=== PATIENT | male | born 1945 | race Caucasian/White ===

== ENCOUNTER → 2018-11-22 12:16 | Outpatient (CLI) | payer MEDICARE, OTHER, SELFPAY ==
--- NOTE | 2018-11-22 12:20 | DI.RAD.S_ITS ---
PROCEDURE: XR CHEST 2V INDICATIONS: cough with wheezing Right lung TECHNIQUE: 2 views of the chest were acquired. COMPARISON: None. FINDINGS: Surgical changes and devices: None. Lungs and pleura: Lungs are clear. No pleural effusions or pneumothorax. Mediastinum: Mediastinal contours are normal. Heart size is normal. Bones and chest wall: No suspicious bony abnormalities. Soft tissues appear unremarkable. IMPRESSION: No acute cardiopulmonary findings. Dictated by: Subha Dalal M.D. on 11/22/2018 at 12:36 Approved by: Subha Dalal M.D. on 11/22/2018 at 12:36
== END ==
PROVIDERS: Visit Provider Physician Assistant
DX: R05 Cough (principal); R06.2 Wheezing
CPT/HCPCS: 71046

== ENCOUNTER → 2019-05-12 15:51 | Outpatient (CLI) | payer MEDICARE, OTHER, SELFPAY | PROVIDERS: Visit Provider Physician Assistant | DX: R30.0 Dysuria (principal) | CPT/HCPCS: 87086 ==

== ENCOUNTER → 2019-09-02 15:00 | Outpatient (CLI) | payer MEDICARE, OTHER, SELFPAY ==
[2019-09-02 16:52] LABS: Add Manual Diff / Slide Review NO; Basophils Absolute Auto 100 /uL (0-100); Basophils Percent Auto 0.9 % (0-2); Eosinophils Absolute Auto 200 /uL (0-450); Eosinophils Percent Auto 3.6 % (2-4); Hematocrit 44.8 % (41-53); Hemoglobin 15.2 g/dL (13.5-17.5); Lymphocytes Absolute Auto 1600 /uL (1100-4500); Lymphocytes Percent Auto 22.9 % (25-40); Mean Corpuscular HGB Conc 33.8 % (30-36); Mean Corpuscular Hemoglobin 30.9 PG (26-34); Mean Corpuscular Volume 91.4 fL (80-100); Monocytes Absolute Auto 600 /uL (0-900); Monocytes Percent Auto 9.2 % (3-14); Neutrophils Absolute Auto 4300 /uL (1500-7000); Neutrophils Percent Auto 63.4 % (50-75); Platelet Count 257 X10^3/uL (150-400); Red Cell Distribution Width 13.2 % (11.6-14.8); White Blood Cell Count 6.8 X10^3/uL (4.5-11.0)
[2019-09-02 17:30] LABS: Alanine Aminotransferase 19 IU/L (<50); Albumin 4.2 g/dL (3.5-5.0); Albumin Globulin Ratio 1.4 (1.0-2.8); Alkaline Phosphatase 73 U/L (38-126); Aspartate Aminotransferase 30 IU/L (17-59); Bilirubin Total 0.3 mg/dL (0.2-1.3); Blood Urea Nitrogen 22 mg/dL (9-20); Calcium 9.5 mg/dL (8.4-10.2); Carbon Dioxide 28 mmol/L (22-32); Chloride 102 mmol/L (98-107); Estimated Glomerular Filt Rate > 60.0 mL/min (>60); Glucose 92 mg/dL (80-110); HEMOLYSIS < 15 (0-50); Phosphorous 3.1 mg/dL (2.3-3.7); Potassium 4.5 mmol/L (3.4-5.1); Sodium 139 mmol/L (137-145); Total Protein 7.2 g/dL (6.3-8.2)
[2019-09-02 17:32] LABS: Erythrocyte Sedimentation Rate 5 MM/HR (0-15)
== END ==
PROVIDERS: PCP Student in an Organized Health Care Education/Training Program; Visit Provider Student in an Organized Health Care Education/Training Program
DX: M89.8X6 Other specified disorders of bone, lower leg (principal); N39.0 Urinary tract infection, site not specified; N41.1 Chronic prostatitis; N14.1 Nephropathy induced by other drugs, medicaments and biological substances; T50.8X5A Adverse effect of diagnostic agents, initial encounter
CPT/HCPCS: 36415; 80053; 84100; 85025; 85651

== ENCOUNTER 2019-09-08 03:47 | Emergency (ER) | payer MEDICARE, OTHER, SELFPAY ==
[2019-09-08 03:50] VITALS: PULSE 66; RESP 18; TEMP 36.4; O2SAT 98
--- NOTE | 2019-09-08 03:51 | DI.CT.S_ITS ---
PROCEDURE: CT ABDOMEN PELVIS W CON INDICATIONS: severe pelvic pain, seen by PCP for same, outpatient imaging TECHNIQUE: After the administration of intravenous contrast, 5 mm thick sections acquired from the diaphragm to the symphysis. 5 mm coronal and sagittal reformats were acquired. For radiation dose reduction, the following was used: automated exposure control, adjustment of mA and/or kV according to patient size. COMPARISON: None. FINDINGS: Image quality: Excellent. ABDOMEN: Lung bases: Scattered subsegmental atelectasis and/or scarring. No focal consolidation. Numerous variable sized subcentimeter bilateral pulmonary nodules are present in the visualized lung bases, which are highly concerning for metastatic disease, although incompletely evaluated recommend dedicated chest CT. Solid organs: Numerous sub-5 mm hepatic hypodensities are present for example image 9/2 in the dome, as well as depicted on the montage image. Gallbladder grossly unremarkable. Biliary system is non dilated. Cystic lesion within the head of the pancreas measuring up to 1.1 cm image 28/2 which is technically indeterminate in the absence of prior studies. Spleen is normal in size and enhancement. On image 22/2, there is a focal 2.0 cm hazy attenuation in the region of the left adrenal gland raising possibility of incidental adrenal myelolipoma although technically indeterminate without prior studies and could be monitored on future CT scans for stability. Kidneys demonstrate normal size and enhancement, without hydronephrosis. Presumed small bilateral renal cysts although some of these are technically too small to characterize accurately Peritoneum and bowel: Bowel loops demonstrate normal wall thickness and caliber. No free fluid or air. Colonic diverticulosis incidentally noted. The appendix is normal size. Rectum grossly unremarkable. Nodes and vessels: No retroperitoneal or mesenteric adenopathy by size criteria. Aorta and inferior vena cava are normal in size. Miscellaneous: Trace umbilical fat-containing hernia, subcentimeter in size. PELVIS: Genitourinary: Bladder wall thickness is normal. Prostate appears enlarged and heterogeneous, and abnormal attenuation may involve the left seminal vesicle although technically indeterminate.. Miscellaneous: No inguinal hernias or adenopathy. Bones: No suspicious bony lesions. No vertebral body compression fractures. IMPRESSION: Numerous bilateral pulmonary nodules in the visualized lung bases, suspicious for metastatic disease as described above Nonspecific subcentimeter scattered hypodense lesions in the liver, technically indeterminate although recommend continued attention on subsequent studies Cystic lesion in the head of the pancreas. Technically, cystic neoplasm such as IPMN cannot be excluded, as discussed in the preliminary interpretation. Further evaluation with contrast enhanced pancreatic protocol MRI could be performed. Enlarged heterogeneous prostate, with possible soft tissue extension into the left seminal vesicle however this is technically indeterminate, and further assessment could be performed with dedicated contrast-enhanced prostate MRI. 2 cm hazy fat attenuation focus involving the left adrenal gland region, potentially incidental adrenal myelolipoma although technically nonspecific and recommend attention to this area on subsequent studies. No definite specific evidence of osseous metastases although bone scan could be considered as clinically necessary. Dictated by: Audi Mendez M.D. on 09/08/2019 at 8:19 Approved by: Audi Mendez M.D. on 09/08/2019 at 8:32
[2019-09-08 04:06] VITALS: BP 130/108
[2019-09-08] MEDS: SODIUM CHLORIDE 0.9% 1,000 ML 1000 ML IV (04:22)
[2019-09-08] MEDS: ONDANSETRON 4 MG/2 ML INJ IV (04:22)
[2019-09-08] MEDS: HYDROMORPHONE 0.5 MG INJ IV (04:22)
[2019-09-08 04:23] LABS: Add Manual Diff / Slide Review NO; Basophils Absolute Auto 100 /uL (0-100); Basophils Percent Auto 1.2 % (0-2); Eosinophils Absolute Auto 400 /uL (0-450); Eosinophils Percent Auto 5.1 % (2-4); Hematocrit 44.6 % (41-53); Hemoglobin 15.2 g/dL (13.5-17.5); Lymphocytes Absolute Auto 1300 /uL (1100-4500); Lymphocytes Percent Auto 17.7 % (25-40); Mean Corpuscular HGB Conc 34.1 % (30-36); Mean Corpuscular Hemoglobin 30.8 PG (26-34); Mean Corpuscular Volume 90.3 fL (80-100); Monocytes Absolute Auto 600 /uL (0-900); Monocytes Percent Auto 8.2 % (3-14); Neutrophils Absolute Auto 5000 /uL (1500-7000); Neutrophils Percent Auto 67.8 % (50-75); Platelet Count 231 X10^3/uL (150-400); Red Blood Cell Count 4.94 X10^6/uL (4.5-5.9); Red Cell Distribution Width 13.2 % (11.6-14.8); White Blood Cell Count 7.4 X10^3/uL (4.5-11.0)
[2019-09-08 04:29] LABS: Blood Urea Nitrogen 18 mg/dL (9-20); Calcium 9.3 mg/dL (8.4-10.2); Carbon Dioxide 26 mmol/L (22-32); Chloride 103 mmol/L (98-107); Estimated Glomerular Filt Rate > 60.0 mL/min (>60); Glucose 108 mg/dL (80-110); HEMOLYSIS 17 (0-50); Sodium 137 mmol/L (137-145)
[2019-09-08 04:40] LABS: Alkaline Phosphatase 67 U/L (38-126)
--- NOTE | 2019-09-08 04:49 | ED_ITS ---
HPI - Male Genitourinary General Chief complaint: Urogenital-Male Stated complaint: lots of pain in pelvic area Time Seen by Provider: 09/08/19 03:50 Source: patient and family Mode of arrival: Ambulatory Limitations: no limitations History of Present Illness HPI Narrative: 74-year-old male nonsmoker with history of chronic prostatitis and urologic care and [place] presents at their request for evaluation of wo rsening suprapubic pain and left lower quadrant pain. The patient denies any fever chills and has been nauseated but no vomiting. He has had no diarrhea or constipation and denies trouble with urination. He has had multiple extended episodes of antibiotic coverage without any significant change in his prostatitis symptoms. He is complaining of increasing significant pain which seems to be worse with motion improved with rest. He denies any provocation with bowel movement. Denies any radiation of the pain. Additionally he has some pain in his right hip which is in the absence of any injury and seems to be worse with motion. He has seen his primary care provider recently and had multiple labs and ordered an outpatient CT of the abdomen pelvis with IV contrast. He denies any testicular pain or swelling. Denies any radiation of the pain into his lower extremities. He denies any numbness, tingling or weakness. He denies any midline back pain MD Complaint: other Onset (ago): month(s) Duration: constant Location: abdomen Severity: severe Quality: aching Relieving factors: none Exacerbating factors: movement Associated symptoms: Reports nausea/vomiting Related Data Home Medications Medication Instructions Recorded Confirmed cholecalciferol (vitamin D3) 1,000 1,000 unit PO DAILY 05/12/19 09/02/19 unit capsule Previous Rx's Medication Instructions Recorded ketorolac 10 mg PO Q6H PRN #20 tab 09/08/19 Allergies Allergy/AdvReac Type Severity Reaction Status Date / Time ciprofloxacin [From Cipro] AdvReac Severe rash, Verified 09/02/19 14:42 tendonopathy pollens Allergy Mild Uncoded 09/02/19 14:42 Review of Systems Constitutional Constitutional: Denies chills, Denies fatigue, Denies fever(s), Denies frequent falls, Denies lethargy and Denies weakness Eyes Eyes: Denies change in vision, Denies eye discharge, Denies irritation and Denies loss of vision ENT Ears, Nose, Mouth, and Throat: Denies change in voice, Denies dizziness, Denies neck pain, Denies sore throat and Denies throat swelling Cardiovascular Cardiovascular: Denies chest pain, Denies irregular heart rhythm, Denies lightheadedness, Denies palpitations, Denies dyspnea, Denies dyspnea on exertion and Denies orthopnea Respiratory Respiratory: Denies cough, Denies dyspnea, Denies dyspnea on exertion and Denies wheezing Gastrointestinal Gastrointestinal: Reports abdominal pain (Suprapubic), Denies change in bowel santiago bits, Denies diarrhea, Denies nausea and Denies vomiting Genitourinary Genitourinary: Denies hematuria, Denies flank pain, Denies urinary incontinence and Denies urinary urgency Musculoskeletal Musculoskeletal: Denies back pain, Reports limited range of motion, Denies muscle weakness, Denies neck pain, Denies numbness and Denies tingling Integumentary/Breasts Skin/Breast: Denies pruritus, Denies erythema, Denies rash and Denies wounds Neurologic Neurologic: Denies behavioral changes, Denies confusion, Denies dizziness, Denies frequent falls, Denies loss of vision, Denies numbness, Denies tingling and Denies weakness Psychiatric Psychiatric: Denies anxiety, Denies behavioral changes, Denies confusion, Denies depression, Denies homicidal ideation and Denies suicidal ideation Endocrine Endocrine: Denies fatigue, Denies flushing and Denies palpitations Hematologic/Lymphatic Hematologic/Lymphatic: Denies easy bruising Allergic/Immunologic Allergic/Immunologic: Denies urticaria, Denies throat swelling and Denies wheezing Patient History Medical History Actinic keratosis (Chronic) Allergies (Chronic) Ankle pain (Chronic ~2019) Chicken pox (Resolved) Colon polyps (Inactive) Frequent UTI (Chronic ~2019) History of skin cancer (Inactive) Measles (Resolved) Mumps (Resolved) Plantar warts (Inactive) Surgical History Anesthesia (Resolved) Basal cell carcinoma of skin of face (Resolved) History of colonoscopy (Resolved) Squamous cell carcinoma of back (Resolved) Family History Father Cancer Hyperlipidemia Mother Diabetes mellitus Hyperlipidemia Hypertension Sister History of heart disease Grandfather History of heart disease Grandmother No problems noted. Grandfather Alzheimer's disease Grandmother Stroke Social History Smoking Status: Never smoker Smoking Status: Never smoker Substance Use Type: does not use Exam Narrative Exam Narrative: GENERAL: [74] year old patient appears stated age. Well-nouris hed, well-developed patient, in obvious pain HEAD: Atraumatic. Normocephalic. EYES: Pupils equal round and reactive. Extraocular motions intact. No scleral icterus. No injection or drainage. ENT: Nose without bleeding, purulent drainage. Throat without erythema, tonsillar hypertrophy or exudate. Airway patent. NECK: Trachea midline. Non tender CARDIOVASCULAR: Regular rate and rhythm without murmurs, gallops, or rubs. RESPIRATORY: Clear to auscultation. Breath sounds equal bilaterally. No wheezes, rales, or rhonchi. GASTROINTESTINAL: Abdomen soft, non-tender, nondistended. RECTAL: prostate exam elicitis some pain, no significant nodularity or increased size/bogginess EXTREMITIES: No edema or joint tenderness. BACK: Nontender without deformity or crepitance. No flank tenderness. NEURO: AOx3. SKIN: No rash or erythema of visible areas Initial Vital Signs Initial Vital Signs: Vital Signs Temperature 97.6 F 09/08/19 03:50 Pulse Rate 66 09/08/19 03:50 Respiratory Rate 18 09/08/19 03:50 Pulse Oximetry 98 09/08/19 03:50 Course Orders Ordered: ED Orders 09/08/19 03:51 CT abdomen pelvis w con Stat 09/08/19 04:00 Alkaline Phosphatase Stat Basic Metabolic Panel Stat Complete Blood Count AUTO DIFF Stat Prostate Specific Antigen Stat 09/08/19 05:21 Urine Microscopic Stat Discontinued Medications Hydromorphone HCl (Dilaudid) 0.5 mg IV NOW ONE Stop: 09/08/19 04:05 Last Admin: 09/08/19 04:22 Dose: 0.5 mg Documented by: MMCFARL Sodium Chloride (Normal Saline 0.9%) 1,000 mls @ 1,000 mls/hr IV BOLUS ONE Stop: 09/08/19 04:51 Last Infusion: 09/08/19 05:33 Dose: 1,000 mls/hr Documented by: Admin: 09/08/19 04:22 Dose: 1,000 mls/hr Documented by: MELECIO Ketorolac Tromethamine (Toradol) 15 mg IV NOW ONE Stop: 09/08/19 05:51 Last Admin: 09/08/19 06:10 Dose: 15 mg Documented by: MELECIO Ondansetron HCl (Zofran) 4 mg IV Q4HR PRN PRN Reason: Nausea And Vomiting Last Admin: 09/08/19 04:22 Dose: 4 mg Documented by: MELECIO Vital Signs Vital signs: Vital Signs - 8 hr 09/08/19 03:50 09/08/19 04:06 09/08/19 05:30 Temperature 97.6 F Pulse Rate 66 60 Respiratory Rate 18 15 Blood Pressure [Left Arm] 130/108 H 134/74 Pulse Oximetry 98 99 MDM - Male Genitourinary Lab Data Result diagrams: 09/08/19 04:00 09/08/19 04:00 Labs: Lab Results 09/08/19 09/08/19 09/08/19 Range/Units 04:00 04:00 04:00 WBC 7.4 (4.5-11.0) X10^3/uL RBC 4.94 (4.5-5.9) X10^6/uL Hgb 15.2 (13.5-17.5) g/dL Hct 44.6 (41-53) % MCV 90.3 (80-100) fL MCH 30.8 (26-34) PG MCHC 34.1 (30-36) % RDW 13.2 (11.6-14.8) % Plt Count 231 (150-400) X10^3/uL Neut % (Auto) 67.8 (50-75) % Lymph % (Auto) 17.7 L (25-40) % [place] % (Auto) 8.2 (3-14) % Eos % (Auto) 5.1 H (2-4) % Baso % (Auto) 1.2 (0-2) % Neut # (Auto) 5000 (1274-8254) /uL Lymph # (Auto) 1300 (2516-7410) /uL [place] # (Auto) 600 (0-900) /uL Eos # (Auto) 400 (0-450) /uL Baso # (Auto) 100 (0-100) /uL Sodium 137 (137-145) mmol/L Potassium 4.0 (3.4-5.1) mmol/L Chloride 103 (98-107) mmol/L Carbon Dioxide 26 (22-32) mmol/L BUN 18 (9-20) mg/dL Creatinine 0.90 (0.66-1.25) mg/dL Estimated GFR > 60.0 (>60) mL/min BUN/Creatinine Ratio 20.0 (6-22) Glucose 108 (80-110) mg/dL Calcium 9.3 (8.4-10.2) mg/dL Alkaline Phosphatase 67 (38-126) U/L Prostate Specific Ag 52.1 H (0.10-4.00) ng/mL Urine RBC (0-5/HPF) Urine WBC (0-5/HPF) Urine Bacteria (None) Ur Culture Indicated? Micro UA Comment 09/08/19 Range/Units 05:21 WBC (4.5-11.0) X10^3/uL RBC (4.5-5.9) X10^6/uL Hgb (13.5-17.5) g/dL Hct (41-53) % MCV (80-100) fL MCH (26-34) PG MCHC (30-36) % RDW (11.6-14.8) % Plt Count (150-400) X10^3/uL Neut % (Auto) (50-75) % Lymph % (Auto) (25-40) % [place] % (Auto) (3-14) % Eos % (Auto) (2-4) % Baso % (Auto) (0-2) % Neut # (Auto) (2906-4167) /uL Lymph # (Auto) (9741-1748) /uL [place] # (Auto) (0-900) /uL Eos # (Auto) (0-450) /uL Baso # (Auto) (0-100) /uL Sodium (137-145) mmol/L Potassium (3.4-5.1) mmol/L Chloride (98-107) mmol/L Carbon Dioxide (22-32) mmol/L BUN (9-20) mg/dL Creatinine (0.66-1.25) mg/dL Estimated GFR (>60) mL/min BUN/Creatinine Ratio (6-22) Glucose (80-110) mg/dL Calcium (8.4-10.2) mg/dL Alkaline Phosphatase (38-126) U/L Prostate Specific Ag (0.10-4.00) ng/mL Urine RBC None seen (0-5/HPF) Urine WBC None seen (0-5/HPF) Urine Bacteria None seen (None) Ur Culture Indicated? Cult not indicated Micro UA Comment Microscopic normal Urine Dip Bedside Urine Glucose Negative Bedside Urine Bilirubin - Negative Bedside Urine Ketone - Negative Urine Specific [place] 1.015 Bedside Urine Occult Blood +/- Bedside Urine pH 6.5 Bedside Urine Protein +/- 15 Bedside Urine Urobilinogen - Negative Bedside Urine Nitrite - Negative Bedside Urine Leukocytes - Negative Esterase Discharge Plan Departure Patient Disposition: Home Clinical Impression: Chronic prostatitis Discharge Date/Time: 09/08/19 06:16 Activity Restrictions/Additional Instructions: *You have been diagnosed with [chronic prostatitis] *What to do: *Take medications as directed: [facility] [place] [facility] your [facility] *Follow up with your primary care provider in 2-3 days, call for an appointment. Let them know you were seen in the Emergency Department and that we ask that you be seen in follow up. Your CT today would suggest that some further imaging would be indicated to evaluate nodules in your lungs as well as a cyst within your pancreas. There is no evidence of metastatic disease or other. Your primary care provider will be a great resource and helping you obtain these outpatient studies. *Return to ER if you should have any new, worsening or concerning symptoms Prescriptions: New ketorolac 10 mg tablet 10 mg PO Q6H PRN (Reason: pain) Qty: 20 RF: 0 No Action cholecalciferol (vitamin D3) 1,000 unit capsule 1,000 unit PO DAILY RF: 0 Referrals: Giovanny Ayon MD [Primary Care Provider] - Maya Woody MD [Non-Staff] -
--- NOTE | 2019-09-08 05:09 | PC.NURSE ---
PT state worsening suprapubic pain and left lower quadrant pain, was told to come to ER by Urologist, history of chronic prostatitis and urologic care in [place]. Denies abnormal urinary symptoms or fever. Took 2 ibuprofen [employer].
[2019-09-08 05:12] LABS: Prostate Specific Antigen 52.1 ng/mL (0.10-4.00)
[2019-09-08 05:28] LABS: Bacteria Urine None Seen; RBC Urine None Seen (0-5/HPF); WBC Urine None Seen (0-5/HPF)
[2019-09-08 05:30] VITALS: BP 134/74; PULSE 60; RESP 15; O2SAT 99
[2019-09-08 05:40] LABS: Culture Indicated Urine Cult Not Indicated; Urine Comments Microscopic Normal
[2019-09-08] MEDS: KETOROLAC 60 MG/2 ML VIAL 15 MG IV (06:10)
== END 2019-09-08 06:16 | disposition home or self-care (01) ==
PROVIDERS: Emergency Provider Emergency Medicine; PCP Student in an Organized Health Care Education/Training Program
DX: N41.1 Chronic prostatitis (principal); R11.2 Nausea with vomiting, unspecified
CPT/HCPCS: 36415; 74177; 80048; 81003; 81015; 84075; 84153; 85025; 96361; 96374; 96375; 99284; J1170; J1885; J2405; Q9967

== ENCOUNTER → 2019-09-09 15:05 | Outpatient (CLI) | payer MEDICARE, OTHER, SELFPAY ==
--- NOTE | 2019-09-09 15:06 | DI.CT.S_ITS ---
PROCEDURE: CT CHEST WO CON INDICATIONS: Eval incidental pulmonary nodules seen on abdominal ct dated 09/08/19 TECHNIQUE: Noncontrast 2.0-2.5 mm thick sections acquired from the pulmonary apices to the posterior costophrenic angles. 7 mm thick axial MIP and 5 mm coronal and sagittal reformats were then acquired. A low radiation dose technique was utilized. COMPARISON: [facility], CR, XR CHEST 2V, 11/22/2018, 12:26. FINDINGS: Image quality: Diagnostic, given the low radiation dose technique. Lungs and pleura: Scattered subsegmental atelectasis and/or scarring. No focal consolidation. Innumerable bilateral pulmonary nodules, subcentimeter in size are seen throughout the upper and lower lobes. The largest measuring up to 9 mm in the right lower lobe on image 22/3. No pleural effusion or pneumothorax. Mediastinum: Heart size is normal. Coronary artery calcifications are present. No pericardial effusion. No mediastinal adenopathy by size criteria. Thoracic aorta and central pulmonary arteries are normal in size. Esophagus is normal in caliber. No hiatal hernia. Bones and chest wall: No suspicious bony lesions. No vertebral body compression fractures. No axillary or supraclavicular adenopathy by size criteria. Thyroid gland unremarkable. Small right posterior fat-containing diaphragmatic hernia. Abdomen: Visualized upper abdomen solid organs and bowel loops appear normal in the absence of contrast. IMPRESSION: Innumerable bilateral subcentimeter pulmonary nodules measuring up to 9 mm. Findings are most concerning for pulmonary metastases, although technically age-indeterminate the absence of remote comparison CT. Recommend short interval followup with repeat chest CT in 2-3 months. Fleischner Society criteria for SOLID lung nodule followup. Nodule size (mm)Low-risk patientHigh-risk patient<6 (single or multiple)No routine followup.Optional CT at 12 months. 6-8 (single or multiple)CT at 6-12 months, then optional CT at 18-24 mo.CT at 6-12 months, then CT at 18-24 months. >8 (single)CT at 3 months, PET-CT, or biopsy. Same as for low-risk pts. >8 (multiple)CT at 3-6 months, then optional CT at 18-24 mo.CT at 3-6 months, then CT at 18-24 months. Fleischner Society criteria for SUB-SOLID lung nodule followup. Solitary pure ground-glass nodules<6 mm (ground glass or part solid)No followup needed. 6 mm or larger (ground glass)CT at 6-12 months to confirm persistence, then CT every 2 years until 5 years.6 mm or larger (part solid)CT at 3-6 months to confirm persistence, then annual CT until 5 years if unchanged and solid component remains <6 mm. Multiple sub-solid nodules<6 mmCT at 3-6 months, then CT consider at 2 & 4 years for high risk patients. [address] at 3-6 months. Subsequent management based on most suspicious lesions. Recommendations do not apply to lung cancer screening, patients with immunosuppression, or patients with known primary cancer. Dictated by: Audi Mendez M.D. on 09/09/2019 at 17:22 Approved by: Audi Mendez M.D. on 09/09/2019 at 17:30
== END ==
PROVIDERS: PCP Student in an Organized Health Care Education/Training Program; Visit Provider Student in an Organized Health Care Education/Training Program
DX: R91.8 Other nonspecific abnormal finding of lung field (principal); I25.10 Atherosclerotic heart disease of native coronary artery without angina pectoris; K44.9 Diaphragmatic hernia without obstruction or gangrene
CPT/HCPCS: 71250

== ENCOUNTER → 2019-09-17 13:27 | Outpatient (CLI) | payer MEDICARE, OTHER, SELFPAY ==
--- NOTE | 2019-09-17 13:28 | DI.MRI.S_ITS ---
PROCEDURE: MR ABDOME PELVIS WWO CON INDICATIONS: Eval abnormal pancreatic imaging in abd CT TECHNIQUE: Coronal HASTE, axial 2D FLASH in- and [id number]; axial breath-hold T2 FSE; dynamic axial VIBE during IV gadolinium administration; postgadolinium coronal VIBE or 2D FLASH with fat saturation from the hepatic dome to the iliac crests. COMPARISON: [facility], CT, CT ABDOMEN PELVIS W CON, 09/08/2019, 4:32. [facility], CT, CT CHEST WO CON, 09/09/2019, 15:15. FINDINGS: Image quality: Excellent. Lung bases: Recent CT scan has documented extensive pulmonary nodules, small to moderate in size, likely representing metastatic disease in this clinical circumstance. Solid organs: Several small hepatic cysts are present, no definite hepatic mass lesion is found that would indicate presence of primary or metastatic neoplasm. Note is made of a sharply demarcated ovoid cyst at the pancreatic head, previously also seen by plain film imaging. This measures up to 1.6 x 1.1 cm but does not appear to communicate with the pancreatic duct or produce pancreatic ductal distention. This could represent a sidebranch IPMN but does not appear to represent a metastatic focus or a likely source of metastatic disease. Nodes and vessels: No adenopathy is seen. Bowel and peritoneum: No lesion seen. Pelvis: The left posterior prostate and bladder border have been abnormal on prior CT scanning where masslike structure is contiguous with the upper margin of the prostate gland. This appears to obliterate or even possibly originate from the seminal vesicle on the left. Both a prostate and a transitional cell carcinoma could produce this appearance. Bones and soft tissues: Extensive osseous metastatic disease is much better visualized by MR scanning than by prior CT scan. This is very well visualized by diffusion imaging, with multifocal osseous metastatic disease involving much of the left acetabulum, the femoral neck on the left and within the left femoral head, to a lesser degree the right acetabulum and right proximal femur, each iliac wing, each sacrum (left greater than right). Additional osseous metastatic disease can be seen scattered to a small degree within the lumbosacral spine, without impending pathologic fracture identified. A low thoracic spine right-sided pedicle metastatic focus is seen at approximately the esophagogastric junction axial level (series 28 image 34). IMPRESSION: A probable anaplastic like density is present in this patient likely prostate in origin, but also potentially transitional cell carcinoma due to the mass lesion associated with the abnormal morphology of the upper left border of the prostate gland, but adjacent seminal vesicle on the left and also the urothelium and bladder margin posteriorly on the left. Extensive osseous metastatic disease is present within the pelvis and present to a much lesser degree within the abdomen. The metastatic disease is underestimated by CT scanning. No definite adenopathy is found. Nuclear medicine bone scan may be warranted to further assess extent of metastatic disease. Ovoid sharply demarcated cyst noted at the pancreatic head, without clear communication with the pancreatic duct. This may represent a benign pancreatic cyst but a sidebranch intraductal papillary mucinous neoplasm is a potential additional etiology. This can be followed over time on the anticipated followup CT or MR scanning. Dictated by: William Kay M.D. on 09/17/2019 at 17:08 Approved by: William Kay M.D. on 09/17/2019 at 17:26
--- NOTE | 2019-09-23 10:48 | ONC.MSW ---
Description: Initial Referral Navigation T/C Activity: Called pt to confirm that we received his referral, introduced myself as the navigator, and briefly explained role and support services available in clinic. Pt states that he's already been referred to both [facility] and [facility] for further w/u, and will be seeing Dr. Garcia at [facility] later this week. PUBLIC HEALTH ASSISTANT shared that if he were to need chemotherapy or supportive care, that he can choose to have his treatments here in [place], while his oncologists in [place] and [place] coordinate his care with Dr. Morejon. He felt that this might be a plan that would work well for he and his . He will plan to call this PUBLIC HEALTH ASSISTANT in the near future should they decide to have their treatments done locally. Will hold the referral for now.
== END ==
PROVIDERS: PCP Student in an Organized Health Care Education/Training Program; Visit Provider Student in an Organized Health Care Education/Training Program
DX: C79.51 Secondary malignant neoplasm of bone (principal); C80.1 Malignant (primary) neoplasm, unspecified; R93.5 Abnormal findings on diagnostic imaging of other abdominal regions, including retroperitoneum; K86.9 Disease of pancreas, unspecified; K76.89 Other specified diseases of liver; R91.8 Other nonspecific abnormal finding of lung field; N42.9 Disorder of prostate, unspecified; N32.9 Bladder disorder, unspecified; M25.552 Pain in left hip
CPT/HCPCS: 72197

== ENCOUNTER → 2019-09-30 08:01 | Outpatient (CLI) | payer MEDICARE, OTHER, SELFPAY ==
--- NOTE | 2019-09-30 | DI.NM.S_ITS ---
PROCEDURE: NM BONE SCAN WHOLE BODY RADIOPHARMACEUTICAL: 21 mCi Tc-99m MDP IV. INDICATIONS: Elevated PSA TECHNIQUE: Delayed whole-body scintigrams were obtained approximately 3-4 hours after intravenous injection of radiotracer. Anterior and posterior views were acquired from vertex to feet. COMPARISON: [facility], CT, CT ABDOMEN PELVIS W CON, 09/08/2019, 4:32. FINDINGS: Degenerative uptake of radiotracer at the acromioclavicular and glenohumeral joints is present. There are multifocal regions of increased radiotracer uptake within the thoracolumbar spine, as well as the bilateral iliac wings, bilateral sacral ala, bilateral left greater than right proximal femora, bilateral superior and inferior pubic rami, and within the left ischium, corresponding to the upper body seen by MRI, indicating metastatic disease. Degenerative uptake of radiotracer at the bilateral knee and ankle joints is present. IMPRESSION: Multifocal bony metastases. Dictated by: Audra Cao M.D. on 09/30/2019 at 16:24 Approved by: Audra Cao M.D. on 09/30/2019 at 16:27
== END ==
PROVIDERS: PCP Student in an Organized Health Care Education/Training Program; Referring Provider Urology; Visit Provider Urology
DX: R97.20 Elevated prostate specific antigen [PSA] (principal); C79.51 Secondary malignant neoplasm of bone; C80.1 Malignant (primary) neoplasm, unspecified
CPT/HCPCS: 78306; A9503

== ENCOUNTER → 2020-07-06 09:14 | Outpatient (CLI) | payer MEDICARE, BC, SELFPAY ==
[2020-07-06 11:28] LABS: Cholesterol 190 mg/dL (140-199); HDL Cholesterol 53 mg/dL (40-60); LDL Cholesterol Calculated 110 mg/dL (<100); Triglycerides 133 mg/dL (35-150)
== END ==
PROVIDERS: PCP Student in an Organized Health Care Education/Training Program; Referring Provider Student in an Organized Health Care Education/Training Program; Visit Provider Student in an Organized Health Care Education/Training Program
DX: Z13.220 Encounter for screening for lipoid disorders (principal)
CPT/HCPCS: 36415; 80061

== ENCOUNTER → 2020-09-15 13:54 | Outpatient (CLI) | payer MEDICARE, BC, SELFPAY ==
[2020-09-15] MEDS: COVID-19 VACC #1, MRNA(MOD) 100 MCG/0.5 ML VIAL IM (14:03)
== END ==
PROVIDERS: PCP Student in an Organized Health Care Education/Training Program; Visit Provider Internal Medicine
DX: Z23 Encounter for immunization (principal)
CPT/HCPCS: 0011A; 91301

== ENCOUNTER → 2020-10-13 12:46 | Outpatient (CLI) | payer MEDICARE, BC, SELFPAY ==
[2020-10-13] MEDS: COVID-19 VACC #2, MRNA(MOD) 100 MCG/0.5 ML VIAL IM (12:52)
== END ==
PROVIDERS: PCP Student in an Organized Health Care Education/Training Program; Visit Provider Internal Medicine
DX: Z23 Encounter for immunization (principal)
CPT/HCPCS: 0012A; 91301

== ENCOUNTER 2021-12-02 08:22 | Emergency (ER) | payer MEDICARE, SELFPAY ==
[2021-12-02] VITALS (18 sets, daily range): BP systolic 126; BP diastolic 65; PULSE 55–83; RESP 15–26; TEMP 37.5; O2SAT 90–98; BMI 27.8
--- NOTE | 2021-12-02 08:27 | ED_ITS ---
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 He had initially presented to the walk-in clinic and was directed to the emergency department. He does not report vomiting abdominal pain or diarrhea. He is not having headaches or palpitations. He has not had any increased edema. Related Data Home Medications Medication Instructions Recorded Confirmed cholecalciferol (vitamin D3) 25 1,000 unit PO DAILY 05/12/19 12/02/21 mcg (1,000 unit) capsule bicalutamide 50 mg tablet 50 mg PO DAILY 10/03/19 12/02/21 amiodarone 450 mg/250 mL (1.8 150 mg IV ONCE 12/02/21 12/02/21 mg/mL) in dextrose 5 % intravenous soln leuprolide 3.75 mg intramuscular 3.75 mg IM QMONTH 12/02/21 12/02/21 syringe kit (Lupron Depot) losartan 25 mg tablet 25 mg PO DAILY 12/02/21 12/02/21 prednisone 5 mg tablet 5 mg PO DAILY 12/02/21 12/02/21 Previous Rx's Medication Instructions Recorded benzonatate 100 mg capsule 100 mg PO BID-TID PRN #14 cap 12/02/21 oxycodone-acetaminophen 5 mg-325 1 tab PO Q6H PRN #10 tab 12/02/21 mg tablet Allergies Allergy/AdvReac Type Severity Reaction Status Date / Time ciprofloxacin [From Cipro] AdvReac Severe rash, Verified 12/02/21 08:37 tendonopathy pollens Allergy Mild Uncoded 12/02/21 08:37 Review of Systems Review of Systems Narrative: Remainder of complete review of systems is otherwise unremarkable except for that included in the HPI. Patient History Medical History (Updated 12/02/21 @ 10:37 by Rima Correa MD) Actinic keratosis Allergies Ankle pain (~2018) Chicken pox Colon polyps Frequent UTI (~2019) History of skin cancer Measles Mumps Plantar warts Prostate cancer metastatic to bone Surgical History Anesthesia Basal cell carcinoma of skin of face History of colonoscopy Squamous cell carcinoma of back Family History Father Cancer Hyperlipidemia Mother Diabetes mellitus Hyperlipidemia Hypertension Sister History of heart disease Grandfather History of heart disease Grandmother No problems noted. Grandfather Alzheimer's disease Grandmother Stroke Social History Smoking Status: Never smoker Smoking Status: Never smoker Substance Use Type: does not use Exam Initial Vital Signs Initial Vital Signs: Vital Signs Temperature 99.5 F 12/02/21 08:32 Pulse Rate 64 12/02/21 08:32 Respiratory Rate 18 12/02/21 08:32 Blood Pressure 126/65 12/02/21 08:32 Pulse Oximetry 96 12/02/21 08:32 General: no acute distress. Moderate intermittent nonproductive cough, able to speak in 5-6 word sentences, appears mildly fatigued. He is not tachypneic and not using accessory muscles. Able to give a complete and coherent history. HEENT: Moist mucous membranes, normal sclera with reactive pupils, Neck: No JVD, supple Respiratory: Lungs mild scattered wheeze but no significant rhonchi and no rales. Full and symmetrical air movement Cardiac: Regular rate and rhythm no murmurs no bruits Abdomen: Soft, nontender, good bowel tones, no flank pain Skin: Warm and dry, no rashes Neurologic: Grossly neurologically intact with no obvious asymmetries or abnor malities Extremities: No trauma, well perfused Psych: Cooperative, appropriate insight and affect Course Orders Ordered: ED Orders 12/02/21 08:39 Urinalysis and Microscopic Stat 12/02/21 08:40 Sputum Culture Stat 12/02/21 09:00 Complete Blood Count AUTO DIFF Stat Comprehensive Metabolic Panel Stat D Dimer Stat Lactate (Lactic Acid) Stat Magnesium Stat NT-proBNP (BNP-Adult 18+) Stat Procalcitonin Stat Troponin I Stat 12/02/21 09:06 Respiratory Panel (Film Array) Stat 12/02/21 09:11 Blood Culture Stat 12/02/21 09:16 EKG-12 Lead Stat 12/02/21 09:33 CXR [XR chest 1V] Stat Discontinued Medications Hydrocortisone (Hydrocortisone 100 Mg/2 Ml Vial) 100 mg IV NOW ONE Stop: 12/02/21 09:51 Sodium Chloride (Normal Saline 0.9%) 1,000 mls @ 1,000 mls/hr IV BOLUS ONE Stop: 12/02/21 09:36 Last Admin: 12/02/21 08:46 Dose: 1,000 mls/hr Documented by: DANIKA Ceftriaxone Sodium 2,000 mg/ (Sodium Chloride) 100 mls @ 200 mls/hr IV NOW ONE Stop: 12/02/21 08:52 Last Admin: 12/02/21 09:27 Dose: 200 mls/hr Documented by: DANIKA Ondansetron HCl (Ondansetron 4 Mg/2 Ml Inj) 4 mg IV NOW ONE Stop: 12/02/21 08:38 Last Admin: 12/02/21 08:46 Dose: 4 mg Documented by: DANIKA Oxycodone/Acetaminophen (Oxycodone/Acetaminophen 5/325 Tablet) 1 tab PO NOW ONE Stop: 12/02/21 08:38 Last Admin: 12/02/21 08:46 Dose: 1 tab Documented by: DANIKA Potassium Chloride (Potassium Chloride 20 Meq Tab) 40 meq PO NOW ONE Stop: 12/02/21 09:34 Vital Signs Vital signs: Vital Signs - 8 hr 12/02/21 08:32 12/02/21 08:34 12/02/21 08:40 Temperature 99.5 F Pulse Rate 64 83 71 Respiratory Rate 18 22 Blood Pressure 126/65 126/65 Pulse Oximetry 96 96 98 12/02/21 08:50 12/02/21 09:00 12/02/21 09:10 Temperature Pulse Rate 70 66 63 Respiratory Rate 26 H 21 23 Blood Pressure Pulse Oximetry 96 92 91 12/02/21 09:20 12/02/21 09:30 12/02/21 09:40 Temperature Pulse Rate 64 63 60 Respiratory Rate 15 21 Blood Pressure Pulse Oximetry 93 95 92 12/02/21 09:50 12/02/21 10:00 12/02/21 10:10 Temperature Pulse Rate 66 57 L 56 L Respiratory Rate 16 16 16 Blood Pressure Pulse Oximetry 90 L 90 L 95 Medical Decision Making Lab Data Result diagrams: 12/02/21 09:00 12/02/21 09:00 Labs: Lab Results 12/02/21 12/02/21 12/02/21 Range/Units 09:00 09:00 09:00 WBC 6.3 (4.5-11.0) X10^3/uL RBC 4.58 (4.5-5.9) X10^6/uL Hgb 14.3 (13.5-17.5) g/dL Hct 42.2 (41-53) % MCV 92.1 (80-100) fL MCH 31.2 (26-34) PG MCHC 33.9 (30-36) % RDW 12.6 (11.6-14.8) % Plt Count 192 (150-400) X10^3/uL Neut % (Auto) 78.5 H (50-75) % Lymph % (Auto) 7.8 L (25-40) % [place] % (Auto) 9.4 (3-14) % Eos % (Auto) 3.9 (2-4) % Baso % (Auto) 0.4 (0-2) % Neut # (Auto) 4900 (9566-8872) /uL Lymph # (Auto) 500 L (5344-9189) /uL [place] # (Auto) 600 (0-900) /uL Eos # (Auto) 200 (0-450) /uL Baso # (Auto) 0 (0-100) /uL D-Dimer < 200 (<230) ng/mL Sodium 137 (137-145) mmol/L Potassium 3.1 L (3.4-5.1) mmol/L Chloride 101 (98-107) mmol/L Carbon Dioxide 27 (22-32) mmol/L BUN 17 (9-20) mg/dL Creatinine 0.98 (0.66-1.25) mg/dL Estimated GFR > 60 (>60) mL/min BUN/Creatinine Ratio 17.3 (6-22) Glucose 113 H (80-110) mg/dL Lactate (0.7-2.1) mmol/L Calcium 9.2 (8.4-10.2) mg/dL Magnesium 1.9 (1.6-2.3) mg/dL Total Bilirubin 1.0 (0.2-1.3) mg/dL AST 40 (17-59) IU/L ALT 28 (<50) IU/L Alkaline Phosphatase 59 (38-126) U/L Troponin I (0.01-0.034) ng/mL NT-Pro-B Natriuret Pep 124 (<450) pg/mL Total Protein 7.4 (6.3-8.2) g/dL Albumin 4.3 (3.5-5.0) g/dL Globulin 3.1 (1.7-4.1) g/dL Albumin/Globulin Ratio 1.4 (1.0-2.8) Procalcitonin (<0.5) ng/mL Chlamy pneumoniae PCR (Not Detect) Adenovirus (PCR) (Not Detect) B. pertussis DNA (PCR) (Not Detecte) B.parapertussis DNA PCR (Not Detecte) Coronavirus OC43 (PCR) (Not Detect) Coronavirus HKU1 (PCR) (Not Detect) Coronavirus 229E (PCR) (Not Detect) SARS-CoV-2 (PCR) (Not Detecte) Coronavirus NL63 (PCR) (Not Detect) Human Metapneumovir PCR (Not Detect) Influenza Type A (PCR) (Not Detect) Influenza Type B (PCR) (Not Detect) M. pneumoniae (PCR) (Not Detect) Parainfluenza 1 (PCR) (Not Detect) Parainfluenza 2 (PCR) (Not Detect) Parainfluenza 3 (PCR) (Not Detect) Parainfluenza 4 (PCR) (Not Detect) RSV (PCR) (Not Detect) Entero/Rhino (PCR) (Not Detect) 12/02/21 12/02/21 12/02/21 Range/Units 09:00 09:00 09:06 WBC (4.5-11.0) X10^3/uL RBC (4.5-5.9) X10^6/uL Hgb (13.5-17.5) g/dL Hct (41-53) % MCV (80-100) fL MCH (26-34) PG MCHC (30-36) % RDW (11.6-14.8) % Plt Count (150-400) X10^3/uL Neut % (Auto) (50-75) % Lymph % (Auto) (25-40) % [place] % (Auto) (3-14) % Eos % (Auto) (2-4) % Baso % (Auto) (0-2) % Neut # (Auto) (6900-1425) /uL Lymph # (Auto) (0889-6404) /uL [place] # (Auto) (0-900) /uL Eos # (Auto) (0-450) /uL Baso # (Auto) (0-100) /uL D-Dimer (<230) ng/mL Sodium (137-145) mmol/L Potassium (3.4-5.1) mmol/L Chloride (98-107) mmol/L Carbon Dioxide (22-32) mmol/L BUN (9-20) mg/dL Creatinine (0.66-1.25) mg/dL Estimated GFR (>60) mL/min BUN/Creatinine Ratio (6-22) Glucose (80-110) mg/dL Lactate 1.1 (0.7-2.1) mmol/L Calcium (8.4-10.2) mg/dL Magnesium (1.6-2.3) mg/dL Total Bilirubin (0.2-1.3) mg/dL AST (17-59) IU/L ALT (<50) IU/L Alkaline Phosphatase (38-126) U/L Troponin I < 0.012 (0.01-0.034) ng/mL NT-Pro-B Natriuret Pep (<450) pg/mL Total Protein (6.3-8.2) g/dL Albumin (3.5-5.0) g/dL Globulin (1.7-4.1) g/dL Albumin/Globulin Ratio (1.0-2.8) Procalcitonin 0.11 (<0.5) ng/mL Chlamy pneumoniae PCR Not detected (Not Detect) Adenovirus (PCR) Not detected (Not Detect) B. pertussis DNA (PCR) Not detected (Not Detecte) B.parapertussis DNA PCR Not detected (Not Detecte) Coronavirus OC43 (PCR) Not detected (Not Detect) Coronavirus HKU1 (PCR) Not detected (Not Detect) Coronavirus 229E (PCR) Not detected (Not Detect) SARS-CoV-2 (PCR) Not detected (Not Detecte) Coronavirus NL63 (PCR) Not detected (Not Detect) Human Metapneumovir PCR Detected H (Not Detect) Influenza Type A (PCR) Not detected (Not Detect) Influenza Type B (PCR) Not detected (Not Detect) M. pneumoniae (PCR) Not detected (Not Detect) Parainfluenza 1 (PCR) Not detected (Not Detect) Parainfluenza 2 (PCR) Not detected (Not Detect) Parainfluenza 3 (PCR) Not detected (Not Detect) Parainfluenza 4 (PCR) Not detected (Not Detect) RSV (PCR) Not detected (Not Detect) Entero/Rhino (PCR) Not detected (Not Detect) ECG Data Interpretation: Sinus rhythm at a rate of 64 Normal intervals, leftward axis, no acute ischemic changes MDM Narrative Medical decision making narrative: 76-year-old gentleman presents with a week of worsening cough, history of metastatic prostate cancer. Labs show hypokalemia, no significant leukocytosis, D-dimer is negative suggesting the absence of pulmonary embolism, EKG and troponin are unremarkable suggesting the absence of acute coronary syndrome as a cause for his cough. He does not have significant wheeze. He is started on antibiotics, chest x-ray is currently pending. He has little wheeze so I don't believe additoinal steroids will be helpful, he is on chronic prednisone 5mg dailyso will add 100 mg hydrocortisone for adrenal support. Respiratory panel comes back with human pneumo Metapneumovir. No evidence of sepsis, bacterial pneumonia, pneumothorax, acute coronary syndrome, pulmonary embolism, complications of his metastatic prostate cancer. With fluid hydration and a Percocet to suppress his cough he is feeling significantly better. I suspect that the sleep deprivation over the last number of days is contributing as much to his fatigue is anything else. Oxygen saturations are in the 95 range at rest and with activity. Reviewed all the findings recommendations, questions were answered and he is safe to go home Discharge Plan Departure Patient Disposition: Home Clinical Impression: Pneumonia, viral Instructions: DI for Viral Upper Respiratory Infection -- Adult Activity Restrictions/Additional Instructions: Thank you for coming in today You have human metapneumovirus. This is 1 of the viruses that causes the common cold. There is no sign of overwhelming infection, no bacterial component, no fluid collecting in your lungs, no blood clots in your lungs, no suggestion of complication from your metastatic prostate cancer involving the cough or your lungs and no evidence of heart attack or acute coronary syndrome. On day 5 I suspect her pretty close to getting over the majority of your symptoms, most viruses are going to last 7-10 days. I have given you a prescription for Tessalon Perles to help suppress your cough. I have also given you a small prescription of Percocet to help with your cough and give you enough relaxation to allow you to sleep so that you truly can begin to heal. If you have more concerns, new findings or your symptoms are worsening, please return to the ER Prescriptions: New benzonatate 100 mg capsule 100 mg PO BID-TID PRN (Reason: cough) Qty: 14 0RF oxycodone-acetaminophen 5-325 mg tablet 1 tab PO Q6H PRN (Reason: pain) Qty: 10 0RF No Action cholecalciferol (vitamin D3) 1,000 unit capsule 1,000 unit PO DAILY 0RF Lupron Depot 3.75 mg syringe kit 3.75 mg IM QMONTH 0RF amiodarone in dextrose 5 % 450 mg/250 mL (1.8 mg/mL) solution 150 mg IV ONCE 0RF prednisone 5 mg tablet 5 mg PO DAILY 0RF losartan 25 mg tablet 25 mg PO DAILY 0RF bicalutamide 50 mg tablet 50 mg PO DAILY 0RF Referrals: Giovanny Ayon MD [Primary Care Provider] -
[2021-12-02] MEDS: SODIUM CHLORIDE 0.9% 1,000 ML 1000 ML IV (08:46)
[2021-12-02] MEDS: ONDANSETRON 4 MG/2 ML INJ IV (08:46)
[2021-12-02] MEDS: OXYCODONE/ACETAMINOPHEN 5/325 TABLET 1 TAB PO (08:46)
[2021-12-02 09:10] LABS: Add Manual Diff / Slide Review NO; Basophils Absolute Auto 0 /uL (0-100); Basophils Percent Auto 0.4 % (0-2); Eosinophils Absolute Auto 200 /uL (0-450); Eosinophils Percent Auto 3.9 % (2-4); Hematocrit 42.2 % (41-53); Hemoglobin 14.3 g/dL (13.5-17.5); Lymphocytes Absolute Auto 500 /uL (1100-4500); Lymphocytes Percent Auto 7.8 % (25-40); Mean Corpuscular HGB Conc 33.9 % (30-36); Mean Corpuscular Hemoglobin 31.2 PG (26-34); Mean Corpuscular Volume 92.1 fL (80-100); Monocytes Absolute Auto 600 /uL (0-900); Monocytes Percent Auto 9.4 % (3-14); Neutrophils Absolute Auto 4900 /uL (1500-7000); Neutrophils Percent Auto 78.5 % (50-75); Platelet Count 192 X10^3/uL (150-400); Red Blood Cell Count 4.58 X10^6/uL (4.5-5.9); Red Cell Distribution Width 12.6 % (11.6-14.8); White Blood Cell Count 6.3 X10^3/uL (4.5-11.0)
[2021-12-02 09:21] LABS: D Dimer < 200 ng/mL (<230)
[2021-12-02 09:23] LABS: Alanine Aminotransferase 28 IU/L (<50); Albumin 4.3 g/dL (3.5-5.0); Albumin Globulin Ratio 1.4 (1.0-2.8); Alkaline Phosphatase 59 U/L (38-126); Aspartate Aminotransferase 40 IU/L (17-59); BUN Creatinine Ratio 17.3 (6-22); Blood Urea Nitrogen 17 mg/dL (9-20); Calcium 9.2 mg/dL (8.4-10.2); Carbon Dioxide 27 mmol/L (22-32); Chloride 101 mmol/L (98-107); Estimated Glomerular Filt Rate > 60 mL/min (>60); Globulin 3.1 g/dL (1.7-4.1); Glucose 113 mg/dL (80-110); HEMOLYSIS < 15 (0-50); Magnesium 1.9 mg/dL (1.6-2.3); Potassium 3.1 mmol/L (3.4-5.1); Sodium 137 mmol/L (137-145); Total Protein 7.4 g/dL (6.3-8.2)
[2021-12-02 09:24] LABS: Lactate (Lactic Acid) 1.1 mmol/L (0.7-2.1)
[2021-12-02] MEDS: cefTRIAXone 2,000 MG in SODIUM CHLORIDE 0.9% 100 ML 200 ML IV (09:27)
[2021-12-02 09:32] LABS: NT-proBNP (BNP-Adult 18+) 124 pg/mL (<450)
--- NOTE | 2021-12-02 09:33 | DI.RAD.S_ITS ---
PROCEDURE: XR CHEST 1V INDICATIONS: cough TECHNIQUE: One view of the chest was acquired. COMPARISON: [facility], CR, XR CHEST 2V, 11/22/2018, 12:26. FINDINGS: Surgical changes and devices: None. Lungs and pleura: Lungs are clear. No pleural effusions or pneumothorax. Mediastinum: Mediastinal contours appear normal. Heart size is normal. Bones and chest wall: No suspicious bony lesions. Overlying soft tissues appear unremarkable. IMPRESSION: No acute cardiopulmonary findings Approved by: Be Gordon M.D. on 12/02/2021 at 9:43
[2021-12-02 09:35] LABS: Troponin I < 0.012 ng/mL (0.01-0.034)
[2021-12-02 09:40] LABS: Procalcitonin 0.11 ng/mL (<0.5)
[2021-12-02 10:07] LABS: Adenovirus Not Detected (Not Detect); Coronavirus 229E Not Detected (Not Detect); Coronavirus HKU1 Not Detected (Not Detect); Coronavirus NL 63 Not Detected (Not Detect); Coronavirus OC43 Not Detected (Not Detect); Human Metapneumovirus Detected (Not Detect); Human Rhinovirus/Enterovirus Not Detected (Not Detect); Influenza A Not Detected (Not Detect); Influenza B Not Detected (Not Detect); SARS- CoV-2 Not Detected (Not Detecte)
[2021-12-02 10:08] LABS: B. parapertussis Not Detected (Not Detecte); Bordetella pertussis Not Detected (Not Detecte); Chlamydophila pneumoniae Not Detected (Not Detect); Mycoplasma pneumoniae Not Detected (Not Detect); Parainfluenza Virus 1 Not Detected (Not Detect); Parainfluenza Virus 2 Not Detected (Not Detect); Parainfluenza Virus 3 Not Detected (Not Detect); Parainfluenza Virus 4 Not Detected (Not Detect); Respiratory Syncytial Virus Not Detected (Not Detect)
[2021-12-02] MEDS: BENZONATATE 100 MG CAPSULE PO (10:46)
[2021-12-02] MEDS: POTASSIUM CHLORIDE 20 MEQ TAB 40 MEQ PO (10:46)
[2021-12-02] MEDS: HYDROCORTISONE 100 MG/2 ML VIAL IV (10:46)
== END 2021-12-02 11:24 | disposition home or self-care (01) ==
PROVIDERS: Emergency Provider Emergency Medicine; PCP Student in an Organized Health Care Education/Training Program
DX: J12.9 Viral pneumonia, unspecified (principal); Z88.1 Allergy status to other antibiotic agents; Z20.822 Contact with and (suspected) exposure to COVID-19
CPT/HCPCS: 36415; 71045; 80053; 83605; 83735; 83880; 84145; 84484; 85025; 85379; 87040; 87633; 93005; 96361; 96365; 96375; 99284; 99285; J0696; J1720; J2405

== ENCOUNTER → 2022-10-30 10:23 | Outpatient (CLI) | payer MEDICARE, SELFPAY ==
--- NOTE | 2022-10-30 10:25 | DI.RAD.S_ITS ---
PROCEDURE: XR HIP W PEL IF DONE RT 2V INDICATIONS: hip pain TECHNIQUE: AP pelvis with lateral view(s) of the right hip(s). COMPARISON: CT, CT ABDOMEN PELVIS W CON, 09/08/2019, 4:32. NM, NM BONE SCAN WHOLE BODY, 09/30/2019, 11:39. FINDINGS: Bones: Normal mineralization. No fractures. There is osteoarthritic spurring along the superior right femoral head and dystrophic calcification along the superior acetabulum. There is fairly symmetric, mild bilateral joint space loss. No suspicious bone lesions are visible. Soft tissues: The visualized bowel gas pattern is normal. No suspicious soft tissue calcifications. IMPRESSION: 1. There have been no significant changes in the osseous morphology compared to the prior CT scan. The numerous metastatic lesions seen previously in the pelvis are not seen by radiographs. Nuclear medicine bone scan is recommended given history of bony metastasis. Dictated by: Yaritza Tomlinson M.D. on 10/30/2022 at 12:29 Approved by: Yaritza Tomlinson M.D. on 10/30/2022 at 12:35
== END ==
PROVIDERS: PCP Internal Medicine; Referring Provider Internal Medicine; Visit Provider Internal Medicine
DX: S76.011A Strain of muscle, fascia and tendon of right hip, initial encounter (principal); X58.XXXA Exposure to other specified factors, initial encounter
CPT/HCPCS: 73502

== ENCOUNTER → 2024-01-12 11:28 | Outpatient (CLI) | payer MEDICARE, SELFPAY ==
[2024-01-12 12:16] LABS: Influenza A - CEPHEID Flu A NEGATIVE (NEGATIVE); Influenza B - CEPHEID Flu B NEGATIVE (NEGATIVE); Respiratory Syncytial Virus Negative (Negative)
[2024-01-12 12:20] LABS: COVID-19 CEPHEID 4-PLEX PCR Negative (Negative)
== END ==
PROVIDERS: PCP Internal Medicine; Visit Provider Registered Nurse
DX: R05.1 Acute cough (principal)
CPT/HCPCS: 0241U

== ENCOUNTER → 2025-05-14 14:41 | Outpatient (CLI) | payer MEDICARE, SELFPAY ==
[2025-05-14 17:04] LABS: Blood Urea Nitrogen 17 mg/dL (9-20); Calcium 9.3 mg/dL (8.4-10.2); Carbon Dioxide 28 mmol/L (22-32); Chloride 102 mmol/L (98-107); Cholesterol 118 mg/dL (140-199); Estimated Glomerular Filt Rate > 60 mL/min (>60); Glucose 103 mg/dL (70-99); HDL Cholesterol 54 mg/dL (40-60); HEMOLYSIS < 15 (0-50); Potassium 4.5 mmol/L (3.4-5.1); Sodium 137 mmol/L (137-145); Triglycerides 82 mg/dL (35-150)
== END ==
PROVIDERS: PCP Internal Medicine; Referring Provider Internal Medicine; Visit Provider Internal Medicine
DX: I10 Essential (primary) hypertension (principal); E78.2 Mixed hyperlipidemia
CPT/HCPCS: 36415; 80048; 80061; 84450